=== PATIENT | female | born 1965 | race African-American/Black ===

== ENCOUNTER 2018-06-27 06:19 | Inpatient (IN) | payer MEDICAID, OTHER ==
[2018-06-27] VITALS (8 sets, daily range): BP systolic 109–142; BP diastolic 54–80
[~2018-06-27] VITALS: Ht 170.2 cm; Wt 106.6 kg
[~2018-06-27 06:19] MED LIST: AMLODIPINE BESY10 MG ORAL; ASPIR 8181 MG ORAL; CYCLOBENZAPRINE10 MG ORAL; LIPITOR80 MG ORAL; LISINOPRIL-HCT1 EACH ORAL; NAPROSYN500 M1 ORAL
[2018-06-27] MEDS ORDERED: ZOLOFT25 MG ORAL (06:28)
[2018-06-27] MEDS ORDERED: NEURONTIN300 MG ORAL (06:28)
[2018-06-27] MEDS ORDERED: TRAZODONE HCL150 MG ORAL (06:28)
[2018-06-27] MEDS ORDERED: PREDNISONE5 M4 PO (06:28)
[2018-06-27] MEDS ORDERED: IRON159 MG PO (06:28)
[2018-06-27] MEDS ORDERED: LORazepam Inj 2mg/ml 1ml IV ONE (06:30)
[2018-06-27] MEDS ORDERED: levETIRAcetam 500 MG in D5W 110 ML IV ONE (06:30)
--- NOTE | 2018-06-27 06:36 | Emergency Room Report ---
History of Present Illness General Chief Complaint: Seizure Source: Family Member, EMS Present Illness HPI Patient presents post witnessed tonic-clonic seizure by daughter. EMS was called. Patient was postictal at that time. Patient was combative and Versed was given in the field. Accu-Chek was normal in the field. The patient takes gabapentin and other medications but no other seizure medication. Allegedly, patient had been drinking alcohol in AM. No other history is available at this time. Daughter states she seizes almost daily. Sometimes there is loss of consciousness, other times "smaller ones". Allergies: Coded Allergies: No Known Allergies (Unverified , 08/17/15) Patient History Limited by: medical condition Past Medical History: see triage record Past Surgical History: other - Bilateral leg surgery for circulatory problem Social History: Reports: alcohol use, drug use - thc; Denies: smoking - former Social History Narrative lives with daughter Last Menstrual Period: UNK Now: No - unk Reviewed Nursing Documentation: PMH: Agreed; PSxH: Agreed Nursing Documentation-PMH Hx Hypertension: Yes History Of Psychiatric Problem: Yes - depression Hx Seizures: Yes Review of Systems All Other Systems: limited Physical Exam Vital Signs Date Time Temp Pulse Resp B/P (MAP) Pulse Ox O2 Delivery O2 Flow Rate FiO2 06/27/18 06:22 97.7 105 14 139/54 99 Room Air Sp02 EP Interpretation: reviewed, normal General Appearance: well appearing, no apparent distress, Postictal Head: normocephalic, atraumatic Eyes: bilateral eye normal inspection, bilateral eye PERRL ENT: moist mucus membranes - No lingual trauma Neck: supple Respiratory: lungs clear, normal breath sounds Cardiovascular #1: regular rate, rhythm Cardiovascular #2: 2+ radial (R) Gastrointestinal: normal inspection, normal bowel sounds, non tender, no mass, non-distended Musculoskeletal: back normal Neurologic: motor strength/tone normal, DTRs symmetric, sensory intact, other - Postictal Psychiatric: other - Postictal Skin: normal inspection, warm/dry Medical Decision Making Diagnostic Impression: Primary Impression: Uncontrolled seizures Qualified Codes: R56.9 - Unspecified convulsions Additional Impressions: Hypokalemia Left lower lobe pulmonary infiltrate ER Course Patient presents post witnessed tonic clonic seizure. Differential includes subtherapeutic antiseizure medication, electrolyte abnormality, acute seizure, aspiration amongst others. Patient will be evaluated with EKG, chest x-ray and labs. The patient will be given Ativan and also 500 mg of Keppra IV. Post ictal, but non-focal neurologic exam. CT not indicated at this time. EKG with sinus tachycardia rate [address]-T wave changes. Potassium is low. Bicarb low. CK slightly elevated. CXR with LLL infiltrate. K ordered. Patient waking up but still confused 7:20. BC and antibiotics ordered. No more seizure activity. Still depressed affect. Non-focal neurologic exam. Patient admitted telemetry Dr. Gonzalez. Laboratory Tests Test 06/27/18 06:35 White Blood Count 5.7 K/UL (4.8-10.8) Red Blood Count 4.21 M/UL (4.20-5.40) Hemoglobin 12.3 G/DL (12.0-16.0) Hematocrit 38.5 % (37.0-47.0) Mean Corpuscular Volume 92 FL (80-99) Mean Corpuscular Hemoglobin 29.2 PG (27.0-31.0) Mean Corpuscular Hemoglobin Concent 31.8 G/DL (32.0-36.0) L Red Cell Distribution Width 15.1 % (11.6-14.8) H Platelet Count 302 K/UL (150-450) Mean Platelet Volume 6.1 FL (6.5-10.1) L Neutrophils (%) (Auto) % (45.0-75.0) Lymphocytes (%) (Auto) % (20.0-45.0) Monocytes (%) (Auto) % (1.0-10.0) Eosinophils (%) (Auto) % (0.0-3.0) Basophils (%) (Auto) % (0.0-2.0) Differential Total Cells Counted 100 Neutrophils % (Manual) 21 % (45-75) L Lymphocytes % (Manual) 63 % (20-45) H Monocytes % (Manual) 11 % (1-10) H Eosinophils % (Manual) 5 % (0-3) H Basophils % (Manual) 0 % (0-2) Band Neutrophils 0 % (0-8) Platelet Estimate Adequate Platelet Morphology Normal Anisocytosis 1+ Urine Color Pale yellow Urine Appearance Clear Urine pH 5 (4.5-8.0) Urine Specific [place] 1.020 (1.005-1.035) Urine Protein 3+ (NEGATIVE) H Urine Glucose (UA) Negative (NEGATIVE) Urine Ketones 1+ (NEGATIVE) H Urine Blood 4+ (NEGATIVE) H Urine Nitrite Negative (NEGATIVE) Urine Bilirubin Negative (NEGATIVE) Urine Urobilinogen Normal MG/DL (0.0-1.0) Urine Leukocyte Esterase Negative (NEGATIVE) Urine RBC 5-10 /HPF (0 - 2) H Urine WBC 0 /HPF (0 - 2) Urine Squamous Epithelial Cells Few /LPF (NONE/OCC) Urine Bacteria Occasional /HPF (NONE) Sodium Level 140 MMOL/L (136-145) Potassium Level 3.0 MMOL/L (3.5-5.1) L Chloride Level 101 MMOL/L (98-107) Carbon Dioxide Level 20 MMOL/L (21-32) L Anion Gap 19 mmol/L (5-15) H Blood Urea Nitrogen 17 mg/dL (7-18) Creatinine 1.2 MG/DL (0.55-1.30) Estimate Glomerular Filtration Rate 57.2 mL/min (>60) Glucose Level 162 MG/DL (74-106) H Calcium Level 9.6 MG/DL (8.5-10.1) Total Bilirubin 0.3 MG/DL (0.2-1.0) Aspartate Amino Transferase (AST) 25 U/L (15-37) Alanine Aminotransferase (ALT) 42 U/L (12-78) Alkaline Phosphatase 121 U/L (46-116) H Total Creatine Kinase 592 U/L (26-308) H Troponin I 0.000 ng/mL (0.000-0.056) Total Protein 8.5 G/DL (6.4-8.2) H Albumin 4.2 G/DL (3.4-5.0) Globulin 4.3 g/dL Albumin/Globulin Ratio 1.0 (1.0-2.7) Urine Opiates Screen Negative (NEGATIVE) Urine Barbiturates Screen Negative (NEGATIVE) Phencyclidine (PCP) Screen Negative (NEGATIVE) Urine Amphetamines Screen Negative (NEGATIVE) Urine Benzodiazepines Screen Positive (NEGATIVE) H Urine Cocaine Screen Negative (NEGATIVE) Urine Marijuana (THC) Screen Positive (NEGATIVE) H EKG Diagnostic Results Rate: tachycardiac Rhythm: NSR ST Segments: no acute changes Rhythm Strip Diag. Results EP Interpretation: yes Rhythm: no PVC's, no ectopy, other - ST Chest X-Ray Diagnostic Results Chest X-Ray Diagnostic Results : Chest X-Ray Ordered: Yes # of Views/Limited/Complete: 1 View Indication: Other EP Interpretation: Yes Interpretation: no effusion, no pneumothorax, other - L infiltrate Impression: Other Electronically Signed by: Electronically signed by Jeb Zarco MD Last Vital Signs Date Time Temp Pulse Resp B/P (MAP) Pulse Ox O2 Delivery O2 Flow Rate FiO2 06/28/18 00:00 97.7 65 18 115/54 (74) 98 06/27/18 21:03 Room Air 21 Status: improved Disposition: ADMITTED INPATIENT Condition: Serious Jeb Zarco MD Jun 27, 2018 06:36
[2018-06-27 06:51] LABS: ANION GAP 19 mmol/L (5-15); BLOOD UREA NITROGEN 17 mg/dL (7-18); CALCIUM 9.6 MG/DL (8.5-10.1); CARBON DIOXIDE 20 MMOL/L (21-32); CHLORIDE 101 MMOL/L (98-107); CREATININE 1.2 MG/DL (0.55-1.30); SODIUM 140 MMOL/L (136-145)
[2018-06-27 06:56] LABS: ALANINE AMINOTRANSFERASE 42 U/L (12-78); ALBUMIN 4.2 G/DL (3.4-5.0); ALKALINE PHOSPHATASE 121 U/L (46-116); ASPARTATE AMINO TRANSFERASE 25 U/L (15-37); BILIRUBIN,TOTAL 0.3 MG/DL (0.2-1.0); CREATINE KINASE 592 U/L (26-308)
[2018-06-27 07:02] LABS: HEMATOCRIT 38.5 % (37.0-47.0); HEMOGLOBIN 12.3 G/DL (12.0-16.0); MEAN CORPUSCULAR VOLUME 92 FL (80-99); PLATELET COUNT 302 K/UL (150-450); RED BLOOD COUNT 4.21 M/UL (4.20-5.40); RED CELL DISTRIBUTION WIDTH 15.1 % (11.6-14.8); WHITE BLOOD COUNT 5.7 K/UL (4.8-10.8)
[2018-06-27 07:33] LABS: APPEARANCE,URINE CLEAR; BILIRUBIN, URINE NEGATIVE (NEGATIVE); COLOR,URINE PALE YELLOW; GLUCOSE, URINE (UA) NEGATIVE (NEGATIVE); KETONES,URINE 1+ (NEGATIVE); LEUKOCYTE ESTERASE ,URINE NEGATIVE (NEGATIVE); NITRITE,URINE NEGATIVE (NEGATIVE); PH,URINE 5 (4.5-8.0); PROTEIN,URINE 3+ (NEGATIVE); UROBILINOGEN,URINE NORMAL MG/DL (0.0-1.0)
--- NOTE | 2018-06-27 08:18 | Diagnostic Imaging Report ---
PORTABLE AP UPRIGHT CXR: HISTORY: 53-year-old female with pain. COMPARISON: None. FINDINGS: Image is mildly limited by motion and external artifacts, as well as patient rotation. Allowing for this, there is asymmetric minimal groundglass and reticular opacity in the left lung base, without obscuration of the left heart border or hemidiaphragm. Lung volumes are mildly low. Heart size is grossly normal. No abnormal mediastinal widening. No obvious pneumothorax or effusion. IMPRESSION: 1. Limited image, as described above. 2. Minimal asymmetric groundglass and reticular opacity in the left lung base, possibly secondary to subsegmental atelectasis, asymmetric chest wall soft tissues, and/or early pneumonia.
[2018-06-27] MEDS ORDERED: Piperacillin/Tazobactam 3.375 GM in NS 110 ML IVPB ONE (08:45)
--- NOTE | 2018-06-27 10:54 | Neurology Progress Note ---
Interim History Interim History ROS Limited/Unobtainable: No Interim History Presents after witnesses "spell" with clonic movements. Pt has history of non epileptic spells. Has been started on zoloft but not seeing a psychologist. Has had multiple EEGs and MRI all normal Was taken off all seizure meds Allergies: Coded Allergies: No Known Allergies (Unverified , 08/17/15) Patient History Limited by: medical condition Past Medical History: see triage record Past Surgical History: other - Bilateral leg surgery for circulatory problem Social History Narrative lives with daughter Last Menstrual Period: UNK Now: No - unk Reviewed Nursing Documentation: PMH: Agreed; PSxH: Agreed Objective Physical Exam Last Vital Signs Date Time Temp Pulse Resp B/P (MAP) Pulse Ox O2 Delivery O2 Flow Rate FiO2 06/27/18 10:30 98.0 82 14 135/77 95 Room Air Laboratory Tests Test 06/27/18 06:35 White Blood Count 5.7 K/UL (4.8-10.8) Red Blood Count 4.21 M/UL (4.20-5.40) Hemoglobin 12.3 G/DL (12.0-16.0) Hematocrit 38.5 % (37.0-47.0) Mean Corpuscular Volume 92 FL (80-99) Mean Corpuscular Hemoglobin 29.2 PG (27.0-31.0) Mean Corpuscular Hemoglobin Concent 31.8 G/DL (32.0-36.0) L Red Cell Distribution Width 15.1 % (11.6-14.8) H Platelet Count 302 K/UL (150-450) Mean Platelet Volume 6.1 FL (6.5-10.1) L Neutrophils (%) (Auto) % (45.0-75.0) Lymphocytes (%) (Auto) % (20.0-45.0) Monocytes (%) (Auto) % (1.0-10.0) Eosinophils (%) (Auto) % (0.0-3.0) Basophils (%) (Auto) % (0.0-2.0) Differential Total Cells Counted 100 Neutrophils % (Manual) 21 % (45-75) L Lymphocytes % (Manual) 63 % (20-45) H Monocytes % (Manual) 11 % (1-10) H Eosinophils % (Manual) 5 % (0-3) H Basophils % (Manual) 0 % (0-2) Band Neutrophils 0 % (0-8) Platelet Estimate Adequate Platelet Morphology Normal Anisocytosis 1+ Urine Color Pale yellow Urine Appearance Clear Urine pH 5 (4.5-8.0) Urine Specific [place] 1.020 (1.005-1.035) Urine Protein 3+ (NEGATIVE) H Urine Glucose (UA) Negative (NEGATIVE) Urine Ketones 1+ (NEGATIVE) H Urine Blood 4+ (NEGATIVE) H Urine Nitrite Negative (NEGATIVE) Urine Bilirubin Negative (NEGATIVE) Urine Urobilinogen Normal MG/DL (0.0-1.0) Urine Leukocyte Esterase Negative (NEGATIVE) Urine RBC 5-10 /HPF (0 - 2) H Urine WBC 0 /HPF (0 - 2) Urine Squamous Epithelial Cells Few /LPF (NONE/OCC) Urine Bacteria Occasional /HPF (NONE) Sodium Level 140 MMOL/L (136-145) Potassium Level 3.0 MMOL/L (3.5-5.1) L Chloride Level 101 MMOL/L (98-107) Carbon Dioxide Level 20 MMOL/L (21-32) L Anion Gap 19 mmol/L (5-15) H Blood Urea Nitrogen 17 mg/dL (7-18) Creatinine 1.2 MG/DL (0.55-1.30) Estimat Glomerular Filtration Rate 57.2 mL/min (>60) Glucose Level 162 MG/DL (74-106) H Calcium Level 9.6 MG/DL (8.5-10.1) Total Bilirubin 0.3 MG/DL (0.2-1.0) Aspartate Amino Transf (AST/SGOT) 25 U/L (15-37) Alanine Aminotransferase (ALT/SGPT) 42 U/L (12-78) Alkaline Phosphatase 121 U/L (46-116) H Total Creatine Kinase 592 U/L (26-308) H Troponin I 0.000 ng/mL (0.000-0.056) Total Protein 8.5 G/DL (6.4-8.2) H Albumin 4.2 G/DL (3.4-5.0) Globulin 4.3 g/dL Albumin/Globulin Ratio 1.0 (1.0-2.7) Urine Opiates Screen Negative (NEGATIVE) Urine Barbiturates Screen Negative (NEGATIVE) Phencyclidine (PCP) Screen Negative (NEGATIVE) Urine Amphetamines Screen Negative (NEGATIVE) Urine Benzodiazepines Screen Positive (NEGATIVE) H Urine Cocaine Screen Negative (NEGATIVE) Urine Marijuana (THC) Screen Positive (NEGATIVE) H Neck: no rigidity EENT: benign Neurologic Exam Mental Status: awake, oriented x4 Speech: normal speech Language: normal language Cranial Nerve II: fundus normal, visual clemens, no papilledema Cranial Nerve VIII: normal hearing Cranial Nerve X: no voice hoarseness Cranial Nerve XI: SCM symmetric, trapezii function normal Cranial Nerve XII: tongue midline, no tongue atrophy/fasciculations Motor System: normal muscle tone Sensory: normal pinprick Coordination: normal finger to nose bilaterally, normal heel to euceda bilaterally, negative Romberg test Deep Tendon Reflexes: 2+ bicep (L), 2+ bicep (R), 2+ tricep (L), 2+ tricep (R) , 2+ brachioradialis (L), 2+ brachioradialis (R), 2+ knee (L), 2+ knee (R), 2+ ankle (L), 2+ ankle (R) Stance: normal Gait: normal regular, heel + toe gait Impression/Recommendations Status: doing well Diagnostic Impression PNES psychogenic non epileptic seizures. Would not re start anti seizure meds now Needs psychotherapy Recommendations Needs outpatient follow up with psychotherapy Social work consult Tamir Laguerre M.D. Jun 27, 2018 10:54
[2018-06-27] MEDS ORDERED: Vancomycin 1.5gm Premix IVPB ONE (11:00)
[2018-06-27] MEDS ORDERED: Albuterol/Ipratropium 3ml neb HHN PRN (12:30)
[2018-06-27] MEDS ORDERED: LORazepam Inj 2mg/ml 1ml IV PRN (12:30)
[2018-06-27] MEDS ORDERED: D5NS 1,000 ML IV SCH (12:41)
--- NOTE | 2018-06-27 13:48 | Pulmonology Progress Note ---
Assessment/Plan Assessment/Plan Pulmonary Consultation Note HPI Patient is a 53 year old woman who presented status post witnessed clonic apparent seizures. Accu-Chek was normal in the field. The patient takes gabapentin and other medications but no seizure medications. Denies cough, chest pain, no hemoptysis, no shortness of breath. Noted to have left lower zone reticular/GG changes, raising possibility of Pneumonia. Currently on broad spectrum antibiotics No other history is available at this time. Allergies: No Known Allergies Past Medical History: Seizures, Depression Past Surgical History: other - Bilateral leg surgery for circulatory problem All Other Systems: limited Physical Exam Vital Signs Noted Date Time Temp Pulse Resp B/P (MAP) Pulse Ox O2 Delivery O2 Flow Rate FiO2 06/27/18 06:22 97.7 105 14 139/54 99 Room Air General Appearance: well appearing, no apparent distress, mildly sedated Head: normocephalic, atraumatic Eyes: bilateral eye normal inspection, bilateral eye PERRL ENT: moist mucus membranes - No lingual trauma Neck: supple Respiratory: lungs clear, normal breath sounds Cardiovascular: HS1, HS2 normal, regular rate, rhythm Gastrointestinal: normal inspection, normal bowel sounds, non tender, no mass, non-distended Musculoskeletal: back normal Neurologic: motor strength/tone normal, DTRs symmetric, sensory intact, no focal signs, no seizures Psychiatric: other - Postictal Skin: normal inspection, warm/dry Impression: Possible Clonic seizures, Neurology following Hypokalemia Left lower lobe pulmonary infiltrate Depression history Plan Continue broad spectrum antibiotics O2 PRN Monitor labs PPX EKG: Rate: tachycardiac Rhythm: NSR ST Segments: no acute changes Chest X-Ray: no effusion, no pneumothorax, other - L infiltrate Subjective ROS Limited/Unobtainable: No Allergies: Coded Allergies: No Known Allergies (Unverified , 08/17/15) Objective Last 24 Hour Vital Signs Date Time Temp Pulse Resp B/P (MAP) Pulse Ox O2 Delivery O2 Flow Rate FiO2 06/27/18 11:13 Room Air 06/27/18 10:30 98.0 82 14 135/77 95 Room Air 06/27/18 10:30 98.0 82 14 135/77 94 Room Air 06/27/18 09:50 97.7 84 15 124/72 95 Room Air 06/27/18 08:50 97.7 84 18 127/65 94 Room Air 06/27/18 07:43 98.1 89 21 142/80 93 Room Air 06/27/18 07:41 83 18 Room Air 06/27/18 06:40 97.7 14 139/54 99 Room Air 06/27/18 06:40 105 14 Room Air 06/27/18 06:22 97.7 105 14 139/54 99 Room Air Intake and Output 06/26/18 06/27/18 18:59 06:59 Intake Total 2000 ml Balance 2000 ml Intake IV Total 2000 ml # Voids 1 Laboratory Tests 06/27/18 06:35: White Blood Count 5.7, Red Blood Count 4.21, Hemoglobin 12.3, Hematocrit 38.5, Mean Corpuscular Volume 92, Mean Corpuscular Hemoglobin 29.2, Mean Corpuscular Hemoglobin Concent 31.8L, Red Cell Distribution Width 15.1H, Platelet Count 302 , Mean Platelet Volume 6.1L, Neutrophils (%) (Auto) , Lymphocytes (%) (Auto) , Monocytes (%) (Auto) , Eosinophils (%) (Auto) , Basophils (%) (Auto) , Differential Total Cells Counted 100, Neutrophils % (Manual) 21L, Lymphocytes % (Manual) 63H, Monocytes % (Manual) 11H, Eosinophils % (Manual) 5H, Basophils % ( Manual) 0, Band Neutrophils 0, Platelet Estimate Adequate, Platelet Morphology Normal, Anisocytosis 1+, Urine Color Pale yellow, Urine Appearance Clear, Urine pH 5, Urine Specific [place] 1.020, Urine Protein 3+H, Urine Glucose (UA) Negative, Urine Ketones 1+H, Urine Blood 4+H, Urine Nitrite Negative, Urine Bilirubin Negative, Urine Urobilinogen Normal, Urine Leukocyte Esterase Negative , Urine RBC 5-10H, Urine WBC 0, Urine Squamous Epithelial Cells Few, Urine Bacteria Occasional, Sodium Level 140, Potassium Level 3.0L, Chloride Level 101 , Carbon Dioxide Level 20L, Anion Gap 19H, Blood Urea Nitrogen 17, Creatinine 1.2, Estimat Glomerular Filtration Rate 57.2, Glucose Level 162H, Calcium Level 9.6, Total Bilirubin 0.3, Aspartate Amino Transf (AST/SGOT) 25, Alanine Aminotransferase (ALT/SGPT) 42, Alkaline Phosphatase 121H, Total Creatine Kinase 592H, Troponin I 0.000, Total Protein 8.5H, Albumin 4.2, Globulin 4.3, Albumin/Globulin Ratio 1.0, Urine Opiates Screen Negative, Urine Barbiturates Screen Negative, Phencyclidine (PCP) Screen Negative, Urine Amphetamines Screen Negative, Urine Benzodiazepines Screen PositiveH, Urine Cocaine Screen Negative , Urine Marijuana (THC) Screen PositiveH Current Medications Medications (Trade) Dose Ordered Sig/Raymond Route PRN Reason Start Time Stop Time Status Last Admin Dose Admin Albuterol/ Ipratropium (Albuterol/ Ipratropium) 3 ml Q4H PRN HHN Shortness of Breath 06/27/18 12:30 07/02/18 12:29 Aztreonam 1 gm/ Sodium Chloride 55 ml @ 110 mls/hr Q8HR IVPB 06/27/18 14:00 07/04/18 13:59 Dextrose/Sodium Chloride 1,000 ml @ 100 mls/hr Q10H IV 06/27/18 12:41 07/27/18 12:40 06/27/18 13:08 Heparin Sodium (Porcine) (Heparin 5000 units/ml) 5,000 units EVERY 12 HOURS SUBQ 06/27/18 21:00 07/27/18 20:59 Levetiracetam 100 ml @ 400 mls/hr Q12HR IVPB 06/27/18 21:00 07/27/18 20:59 Lorazepam (Ativan 2mg/ml 1ml) 2 mg Q5M PRN IV For Seizures 06/27/18 12:30 07/02/18 12:29 Pantoprazole (Protonix) 40 mg DAILY IVP 06/28/18 09:00 07/28/18 08:59 Vancomycin HCl (Vanco rx to dose) 1 ea DAILY PRN MISC Per rx protocol 06/27/18 09:15 07/27/18 09:14 Vancomycin HCl 1 gm/Dextrose 275 ml @ 183.708 mls/hr Q12HR@1100,2300 IVPB 06/27/18 23:00 07/02/18 22:59 Jeb Tate MD Jun 27, 2018 13:48
[2018-06-27] MEDS ORDERED: Piperacillin/Tazobactam 3.375 GM in NS 110 ML IVPB SCH (14:00)
[2018-06-27] MEDS ORDERED: Aztreonam Inj 1 GM in NS 55 ML IVPB SCH (14:00)
[2018-06-27] MEDS: Aztreonam Inj 1 GM in NS 55 ML IVPB SCH ×2 (16:15→21:03)
--- NOTE | 2018-06-27 19:15 | History and Physical Report ---
DATE OF ADMISSION: 06/27/[address] Gonzalez. CHIEF COMPLAINT: The patient is a 53-year-old female, who presents with chief complaint of seizure. HISTORY OF PRESENT ILLNESS: The patient has a history of seizure disorder. The patient apparently had a tonic-clonic seizure today which was observed by the patient's daughter. The patient has been on gabapentin, however, continues to have seizures. EMS was called. The patient was transported to [facility]. The patient was admitted for breakthrough seizures. REVIEW OF SYSTEMS: Unable to assess, as the patient is postictal. PAST MEDICAL HISTORY: Significant for: 1. Seizure disorder. 2. Hypertension. 3. Hypercholesterolemia. PAST SURGICAL HISTORY: significant for bilateral stent placement in the femoral artery. CURRENT MEDICATIONS: 1. Amlodipine 10 mg p.o. daily. 2. Aspirin 81 mg p.o. daily. 3. Atorvastatin 80 mg p.o. daily. 4. Flexeril 10 mg p.o. three times daily. 5. Iron sulfate mg p.o. daily. 6. Gabapentin 300 mg p.o. at bedtime. 7. Lisinopril/hydrochlorothiazide 10/12.5 one tablet p.o. daily. 8. Naprosyn 500 mg p.o. twice daily. 9. Zoloft 25 mg p.o. daily. 10. Trazodone 150 mg p.o. at bedtime. ALLERGIES: No known drug allergies. SOCIAL HISTORY: The patient is . The patient denies tobacco or alcohol use. PHYSICAL EXAMINATION: VITAL SIGNS: Temperature 98.1, respirations , pulse 89, blood pressure 142/80. GENERAL: The patient is well-developed and well-nourished female, who is somnolent, however arousable. HEENT: Eyes, pupils are equal and responsive to light and accommodation. Extraocular movements are intact. NECK: Supple without lymphadenopathy. CHEST: Lungs are clear to auscultation bilaterally without wheezes or rales. CARDIOVASCULAR: Regular rhythm and rate. S1 and S2 are normal without murmurs, rubs, or gallops. ABDOMEN: Soft, nontender, and nondistended. Positive bowel sounds. No evidence of hepatosplenomegaly. Currently, no rebound or guarding noted. EXTREMITIES: Negative for clubbing, cyanosis, or edema. RECTAL/GENITAL: Not performed. NEUROLOGICAL: Cranial nerves II through XII are grossly intact without focal deficits. Motor strength is 5/5 bilaterally. Deep tendon reflexes are 2+ plantar. LABORATORY STUDIES: WBC 5.7, hemoglobin 12.2, hematocrit 38.5 platelets, and 302,000. Sodium 140, potassium 3.0, chloride 101, CO2 20, BUN 19, creatinine 1.2, and glucose 162. Total creatine kinase elevated at 592. Urine toxicology was reported as positive for benzodiazepines and marijuana. ASSESSMENT: This is a 53-year-old : 1. Seizure. 2. History of seizure disorder. 3. Hypertension. 4. Hypercholesterolemia. TREATMENT: 1. Breakthrough seizure/history of seizure disorder. A Neurology consultation is pending with Dr. Laguerre. We will follow recommendations of Neurology. Keppra has been ordered. 2. Hypertension. Continue amlodipine and lisinopril/hydrochlorothiazide. 3. Hypercholesterolemia. Continue atorvastatin as above. David Olmedo M.D. DR: RIN JOB#: [id number] CC:
[2018-06-27] MEDS ORDERED: D5NS 1000ml IV ONE (20:36)
[2018-06-27] MEDS ORDERED: Tubing IV Secondary IV ONE (20:36)
--- NOTE | 2018-06-27 20:54 | Infectious Diseases Prog Note ---
Assessment/Plan Problems: (1) Left lower lobe pulmonary infiltrate Assessment & Plan: suspect aspiration pneumonia , will start vancomycin and aztreonam empirically pending culture, aspiration precaution (2) Uncontrolled seizures Assessment & Plan: continue seizure meds with neurology eval, monitor in tele Subjective Allergies: Coded Allergies: No Known Allergies (Unverified , 08/17/15) Objective Vital Signs Last 24 Hour Vital Signs Date Time Temp Pulse Resp B/P (MAP) Pulse Ox O2 Delivery O2 Flow Rate FiO2 06/27/18 15:38 98.2 79 20 109/69 (82) 98 06/27/18 15:38 79 06/27/18 12:00 97.5 66 21 130/60 (83) 98 06/27/18 11:40 86 06/27/18 11:13 Room Air 06/27/18 10:30 98.0 82 14 135/77 95 Room Air 06/27/18 10:30 98.0 82 14 135/77 94 Room Air 06/27/18 09:50 97.7 84 15 124/72 95 Room Air 06/27/18 08:50 97.7 84 18 127/65 94 Room Air 06/27/18 07:43 98.1 89 21 142/80 93 Room Air 06/27/18 07:41 83 18 Room Air 06/27/18 06:40 97.7 14 139/54 99 Room Air 06/27/18 06:40 105 14 Room Air 06/27/18 06:22 97.7 105 14 139/54 99 Room Air Height (Feet): 5 Height (Inches): 7.00 Weight (Pounds): 235 Laboratory Tests Test 06/27/18 06:35 White Blood Count 5.7 K/UL (4.8-10.8) Red Blood Count 4.21 M/UL (4.20-5.40) Hemoglobin 12.3 G/DL (12.0-16.0) Hematocrit 38.5 % (37.0-47.0) Mean Corpuscular Volume 92 FL (80-99) Mean Corpuscular Hemoglobin 29.2 PG (27.0-31.0) Mean Corpuscular Hemoglobin Concent 31.8 G/DL (32.0-36.0) L Red Cell Distribution Width 15.1 % (11.6-14.8) H Platelet Count 302 K/UL (150-450) Mean Platelet Volume 6.1 FL (6.5-10.1) L Neutrophils (%) (Auto) % (45.0-75.0) Lymphocytes (%) (Auto) % (20.0-45.0) Monocytes (%) (Auto) % (1.0-10.0) Eosinophils (%) (Auto) % (0.0-3.0) Basophils (%) (Auto) % (0.0-2.0) Differential Total Cells Counted 100 Neutrophils % (Manual) 21 % (45-75) L Lymphocytes % (Manual) 63 % (20-45) H Monocytes % (Manual) 11 % (1-10) H Eosinophils % (Manual) 5 % (0-3) H Basophils % (Manual) 0 % (0-2) Band Neutrophils 0 % (0-8) Platelet Estimate Adequate Platelet Morphology Normal Anisocytosis 1+ Urine Color Pale yellow Urine Appearance Clear Urine pH 5 (4.5-8.0) Urine Specific [place] 1.020 (1.005-1.035) Urine Protein 3+ (NEGATIVE) H Urine Glucose (UA) Negative (NEGATIVE) Urine Ketones 1+ (NEGATIVE) H Urine Blood 4+ (NEGATIVE) H Urine Nitrite Negative (NEGATIVE) Urine Bilirubin Negative (NEGATIVE) Urine Urobilinogen Normal MG/DL (0.0-1.0) Urine Leukocyte Esterase Negative (NEGATIVE) Urine RBC 5-10 /HPF (0 - 2) H Urine WBC 0 /HPF (0 - 2) Urine Squamous Epithelial Cells Few /LPF (NONE/OCC) Urine Bacteria Occasional /HPF (NONE) Sodium Level 140 MMOL/L (136-145) Potassium Level 3.0 MMOL/L (3.5-5.1) L Chloride Level 101 MMOL/L (98-107) Carbon Dioxide Level 20 MMOL/L (21-32) L Anion Gap 19 mmol/L (5-15) H Blood Urea Nitrogen 17 mg/dL (7-18) Creatinine 1.2 MG/DL (0.55-1.30) Estimat Glomerular Filtration Rate 57.2 mL/min (>60) Glucose Level 162 MG/DL (74-106) H Calcium Level 9.6 MG/DL (8.5-10.1) Total Bilirubin 0.3 MG/DL (0.2-1.0) Aspartate Amino Transf (AST/SGOT) 25 U/L (15-37) Alanine Aminotransferase (ALT/SGPT) 42 U/L (12-78) Alkaline Phosphatase 121 U/L (46-116) H Total Creatine Kinase 592 U/L (26-308) H Troponin I 0.000 ng/mL (0.000-0.056) Total Protein 8.5 G/DL (6.4-8.2) H Albumin 4.2 G/DL (3.4-5.0) Globulin 4.3 g/dL Albumin/Globulin Ratio 1.0 (1.0-2.7) Urine Opiates Screen Negative (NEGATIVE) Urine Barbiturates Screen Negative (NEGATIVE) Phencyclidine (PCP) Screen Negative (NEGATIVE) Urine Amphetamines Screen Negative (NEGATIVE) Urine Benzodiazepines Screen Positive (NEGATIVE) H Urine Cocaine Screen Negative (NEGATIVE) Urine Marijuana (THC) Screen Positive (NEGATIVE) H Current Medications Medications (Trade) Dose Ordered Sig/Raymond Route PRN Reason Start Time Stop Time Status Last Admin Dose Admin Albuterol/ Ipratropium (Albuterol/ Ipratropium) 3 ml Q4H PRN HHN Shortness of Breath 06/27/18 12:30 07/02/18 12:29 Aztreonam 1 gm/ Sodium Chloride 55 ml @ 110 mls/hr Q8HR IVPB 06/27/18 15:00 07/04/18 14:59 06/27/18 16:15 Dextrose/Sodium Chloride 1,000 ml @ 100 mls/hr Q10H IV 06/27/18 12:41 07/27/18 12:40 06/27/18 13:08 Heparin Sodium (Porcine) (Heparin 5000 units/ml) 5,000 units EVERY 12 HOURS SUBQ 06/27/18 21:00 07/27/18 20:59 Lorazepam (Ativan 2mg/ml 1ml) 2 mg Q5M PRN IV For Seizures 06/27/18 12:30 07/02/18 12:29 Pantoprazole (Protonix) 40 mg DAILY IVP 06/28/18 09:00 07/28/18 08:59 Vancomycin HCl (Vanco rx to dose) 1 ea DAILY PRN MISC Per rx protocol 06/27/18 09:15 07/27/18 09:14 Vancomycin HCl 1 gm/Dextrose 275 ml @ 183.708 mls/hr Q12HR@0100,1300 IVPB 06/28/18 01:00 07/03/18 00:59 Leander Francisco M.D. Jun 27, 2018 20:54
[2018-06-27] MEDS ORDERED: levETIRAcetam 500mg/NS100ml 100 ML IVPB SCH (21:00)
[2018-06-27] MEDS: Heparin 5000 units/ml inj SUBQ SCH (21:05)
[2018-06-27] MEDS ORDERED: Vancomycin 1gm/D5W 275ml IVPB SCH ×2 (23:00)
[2018-06-28] VITALS: BP 115/54
[2018-06-28] MEDS: Vancomycin 1gm/D5W 275ml IVPB SCH ×4 (00:34→13:02)
[2018-06-28 04:00] VITALS: BP 135/62
[2018-06-28] MEDS: Aztreonam Inj 1 GM in NS 55 ML IVPB SCH (05:13)
--- NOTE | 2018-06-28 07:23 | General Progress Note ---
Assessment/Plan Assessment/Plan seen and examind. Dictation completed. On 721 Subjective Allergies: Coded Allergies: No Known Allergies (Unverified , 08/17/15) Objective Last 24 Hour Vital Signs Date Time Temp Pulse Resp B/P (MAP) Pulse Ox O2 Delivery O2 Flow Rate FiO2 06/28/18 04:00 97.9 61 18 135/62 (86) 98 06/28/18 03:22 65 06/28/18 00:00 97.7 65 18 115/54 (74) 98 06/27/18 23:28 80 06/27/18 21:03 79 16 Room Air 21 06/27/18 21:00 Room Air 06/27/18 20:00 98.5 67 18 109/60 (76) 96 06/27/18 19:40 75 06/27/18 15:38 98.2 79 20 109/69 (82) 98 06/27/18 15:38 79 06/27/18 12:00 97.5 66 21 130/60 (83) 98 06/27/18 11:40 86 06/27/18 11:13 Room Air 06/27/18 10:30 98.0 82 14 135/77 95 Room Air 06/27/18 10:30 98.0 82 14 135/77 94 Room Air 06/27/18 09:50 97.7 84 15 124/72 95 Room Air 06/27/18 08:50 97.7 84 18 127/65 94 Room Air 06/27/18 07:43 98.1 89 21 142/80 93 Room Air 06/27/18 07:41 83 18 Room Air Intake and Output 06/27/18 06/28/18 19:00 07:00 Intake Total 4325 ml 1065.000 ml Output Total 1450 ml Balance 4325 ml -385.000 ml Intake Oral 480 ml IV Total 4325 ml 585.000 ml Output Urine Total 1450 ml # Voids 4 Height (Feet): 5 Height (Inches): 7.00 Weight (Pounds): 235 David Gonzalez MD Jun 28, 2018 07:23
[2018-06-28 07:53] LABS: BASOPHILS % (AUTO) 2.4 % (0.0-2.0); EOSINOPHILS % (AUTO) 2.9 % (0.0-3.0); HEMOGLOBIN 11.5 G/DL (12.0-16.0); LYMPHOCYTES % (AUTO) 42.2 % (20.0-45.0); MEAN CORPUSCULAR VOLUME 91 FL (80-99); MONOCYTES % (AUTO) 8.5 % (1.0-10.0); PLATELET COUNT 288 K/UL (150-450); RED BLOOD COUNT 3.97 M/UL (4.20-5.40); RED CELL DISTRIBUTION WIDTH 15.2 % (11.6-14.8); WHITE BLOOD COUNT 4.5 K/UL (4.8-10.8)
[2018-06-28 08:00] VITALS: BP 126/78
[2018-06-28 08:35] LABS: ALANINE AMINOTRANSFERASE 40 U/L (12-78); ALKALINE PHOSPHATASE 103 U/L (46-116); ANION GAP 11 mmol/L (5-15); ASPARTATE AMINO TRANSFERASE 29 U/L (15-37); BILIRUBIN,TOTAL 0.6 MG/DL (0.2-1.0); BLOOD UREA NITROGEN 12 mg/dL (7-18); CALCIUM 9.5 MG/DL (8.5-10.1); CARBON DIOXIDE 28 MMOL/L (21-32); CHLORIDE 104 MMOL/L (98-107); POTASSIUM 3.1 MMOL/L (3.5-5.1); SODIUM 143 MMOL/L (136-145)
[2018-06-28] MEDS ORDERED: Pantoprazole Inj IVP SCH (09:00)
[2018-06-28] MEDS: Heparin 5000 units/ml inj SUBQ SCH (09:00)
[2018-06-28 12:00] VITALS: BP 137/69
--- NOTE | 2018-06-28 15:15 | Progress Note ---
DATE: 06/28/2018 SOURCE OF INFORMATION: Patient and EMR. HISTORY OF PRESENT ILLNESS: The patient is a pleasant 53-year-old female with unremarkable past medical history, who presented with the episode of the seizure, it looks like to be tonic-clonic, generalized by her description. She reported that suffered from the same episodes couple days ago and was advised to follow up as an outpatient in emergency room couple days ago. Initial evaluation in the emergency room shows vital signs stable, relative tachycardia. Initial laboratories shows low potassium and positive for the marijuana and benzos. PAST MEDICAL HISTORY: Severe peripheral arterial disease. PAST SURGICAL HISTORY: Aortoiliac grafts in both extremities. ALLERGIES: NKDA. FAMILY HISTORY: Reviewed and noncontributory. CURRENT HOSPITAL MEDICATIONS: Including aztreonam, Protonix, and vancomycin. PHYSICAL EXAMINATION: VITAL SIGNS: Blood pressure 140/80, temperature 98.2, pulse oximetry 98% on room air, and pulse rate 100. HEAD AND NECK: Atraumatic and normocephalic. CHEST: Clear to auscultation. HEART: S1, S2. Regular rate and rhythm. ABDOMEN: Soft. No organomegaly. MUSCULOSKELETAL: Well-healed scars of prior surgeries in both legs. NEUROLOGIC: The patient is awake, alert, and oriented x3. LABORATORY AND DIAGNOSTIC DATA: Chest x-ray dated June 27, 2018, shows ground-glass and reticular opacities in the left lung. Labs dated June 24, 2018, shows WBC 5.7, hemoglobin 12.3, platelet count of 300. Sodium 140, potassium 3, BUN 17, and creatinine 1.2. Creatine kinase of 592. Toxicology shows positive for the marijuana. ASSESSMENT AND PLAN: 1. Seizure disorder, tonic-clonic. 2. Substance abuse. 3. Rhabdomyolysis secondary to seizure disorder, tonic-clonic. 4. GI and DVT prophylaxis. 5. Abnormal finding of the pulmonary infiltration. PLAN OF CARE: The patient will continue with the current prophylactic antibiotic treatment. David Gonzalez M.D. DR: NATASHA JOB#: [id number] CC:
--- NOTE | 2018-06-28 17:11 | Pulmonology Progress Note ---
Assessment/Plan Assessment/Plan Lung infiltrates Possible aspiraiton vs atx Possible Sz Rhabdo Anemia Discussion Infiltrates @ L base likely atx vs infiltrate, no WCt, no fevers, no cough/SOB D/W ID and plan was to get a CT to confirm but patient has left AMA Subjective Allergies: Coded Allergies: No Known Allergies (Unverified , 08/17/15) Subjective Patient seen earlier, has since left AMA Denied cough, SOB, CP, FC No Sz's Objective Last 24 Hour Vital Signs Date Time Temp Pulse Resp B/P (MAP) Pulse Ox O2 Delivery O2 Flow Rate FiO2 06/28/18 12:00 98.7 64 18 137/69 (91) 92 06/28/18 12:00 67 06/28/18 09:00 Room Air 06/28/18 08:00 65 06/28/18 08:00 97.2 62 18 126/78 (94) 93 06/28/18 04:00 97.9 61 18 135/62 (86) 98 06/28/18 03:22 65 06/28/18 00:00 97.7 65 18 115/54 (74) 98 06/27/18 23:28 80 06/27/18 21:03 79 16 Room Air 21 06/27/18 21:00 Room Air 06/27/18 20:00 98.5 67 18 109/60 (76) 96 06/27/18 19:40 75 Intake and Output 06/27/18 06/28/18 18:59 06:59 Intake Total 4225 ml 1165.000 ml Output Total 1450 ml Balance 4225 ml -285.000 ml Intake Oral 480 ml IV Total 4225 ml 685.000 ml Output Urine Total 1450 ml # Voids 4 General Appearance: WD/WN, no acute distress HEENT: normocephalic, atraumatic, anicteric, mucous membranes moist Respiratory/Chest: chest wall non-tender, lungs clear, normal breath sounds, no respiratory distress, no accessory muscle use Cardiovascular: normal peripheral pulses, normal rate, regular rhythm Abdomen: normal bowel sounds, soft, non tender, no organomegaly, non distended , no mass Extremities: no cyanosis, no clubbing, no edema Laboratory Tests 06/28/18 07:12: White Blood Count 4.5L, Red Blood Count 3.97L, Hemoglobin 11.5L, Hematocrit 36.0L, Mean Corpuscular Volume 91, Mean Corpuscular Hemoglobin 29.0, Mean Corpuscular Hemoglobin Concent 32.0, Red Cell Distribution Width 15.2H, Platelet Count 288, Mean Platelet Volume 5.9L, Neutrophils (%) (Auto) 44.0L, Lymphocytes (%) (Auto) 42.2, Monocytes (%) (Auto) 8.5, Eosinophils (%) (Auto) 2.9, Basophils (%) (Auto) 2.4H, Sodium Level 143, Potassium Level 3.1L, Chloride Level 104, Carbon Dioxide Level 28, Anion Gap 11, Blood Urea Nitrogen 12, Creatinine 1.0, Estimat Glomerular Filtration Rate > 60, Glucose Level 101, Calcium Level 9.5, Total Bilirubin 0.6, Aspartate Amino Transf (AST/SGOT) 29, Alanine Aminotransferase (ALT/SGPT) 40, Alkaline Phosphatase 103, Total Protein 8.1, Albumin 4.0, Globulin 4.1, Albumin/Globulin Ratio 1.0, Levetiracetam ( Keppra) Level [Pending] Yan Desai MD Jun 28, 2018 17:11
--- NOTE | 2018-06-28 19:41 | Cardiology Report ---
APPROVED REPORT EKG Measurement Heart [id number] Sinus tachycardia Nonspecific ST abnormality Abnormal ECG
--- NOTE | 2018-06-28 22:45 | Consultation ---
DATE OF CONSULTATION: 06/27/2018 INFECTIOUS DISEASE CONSULTATION CONSULTING PHYSICIAN: Leander Francisco M.D. REQUESTING PHYSICIAN: David Gonzalez M.D. REASON FOR CONSULTATION: Left lower lobe pulmonary infiltrate, possible pneumonia in a patient with a seizure. Recommendation for antibiotics treatment. HISTORY OF PRESENT ILLNESS: The patient is a 53-year-old female with past medical history of seizure disorder, who had a tonic-clonic seizure activity on the day of the admission was observed by her daughter. The patient has been taking gabapentin at home, but continued to seize. Paramedics were called and she was transported to [facility] emergency room and had extensive workup including chest x-ray, which showed left lower lobe pulmonary infiltration concerning for pneumonia. So, Infectious Disease consultation was requested for antibiotics treatment and further management. REVIEW OF SYSTEMS: A 14-point of system reviewed were all negative apart from the one I mentioned above in my History and Physical. PAST MEDICAL HISTORY: Significant for seizure disorder, hypertension, and hyperlipidemia. PAST SURGICAL HISTORY: She had bilateral stent placement in the femoral arteries. SOCIAL HISTORY: The patient is . Lives with daughter. Denied using any tobacco, drugs, or alcohol. MEDICATIONS: She is on amlodipine, aspirin, atorvastatin, Flexeril, iron sulfate, gabapentin, lisinopril, naproxen, Zoloft, and trazodone. LABORATORY DATA: Laboratories showed white count of 5.7, hemoglobin of 12.3, and platelet count of 302,000. BUN of 17 and creatinine of 1.2. AST of 25 and ALT of 42. Urinalysis was negative for nitrite and leukocyte esterase with normal WBC. IMAGING: Chest x-ray showed limited image, minimal asymmetric ground-glass and reticular opacity in the left lung base possibly due to subsegmental atelectases, asymmetric chest wall soft tissues, or early pneumonia. PHYSICAL EXAMINATION: VITAL SIGNS: Temperature 98.2, pulse 79, respirations 20, blood pressure 109/69, and saturation 98% on room air. GENERAL: A middle-aged female, lying in bed, awake, alert, comfortable, not in acute distress. HEENT: Normocephalic and atraumatic. Pupils are reactive to light equally. Moist oral mucosa. No exudate or thrush. NECK: Supple. No lymphadenopathy. CARDIOVASCULAR: Regular rate and rhythm. No murmur. LUNGS: She had diminished breathing sounds at the bases, left worse than right with crackles. No wheezing or rhonchi. Normal breathing effort. ABDOMEN: Soft, nontender, and nondistended. Normal bowel sounds. No hepatosplenomegaly. No ascites. EXTREMITIES: No edema or cyanosis. ASSESSMENT/RECOMMENDATIONS: 1. Left lower lobe lung infiltration, suspect aspiration pneumonia in a patient, who had seizure activities. We will start the patient on vancomycin and aztreonam, empiric coverage since she has seizure. Monitor chest x-ray with aspiration precaution. CT scan will be helpful for further evaluation if the patient agrees. 2. Uncontrolled seizure. Continue seizure medicine. Consult Neurology. Monitor in telemetry unit. Thank you for the consult. ID will continue to follow. Leander Francisco M.D. DR: LANG JOB#: [id number] CC:
--- NOTE | 2018-06-29 00:45 | Consultation ---
DATE OF CONSULTATION: 06/27/2018 INFECTIOUS DISEASE CONSULTATION CONSULTING PHYSICIAN: Leander Francisco M.D. REQUESTING PHYSICIAN: David Gonzalez M.D. REASON FOR CONSULTATION: Left lower lobe pulmonary infiltrate, possible pneumonia in a patient with a seizure. Recommendation for antibiotics treatment. HISTORY OF PRESENT ILLNESS: The patient is a 53-year-old female with past medical history of seizure disorder, who had a tonic-clonic seizure activity on the day of the admission was observed by her daughter. The patient has been taking gabapentin at home, but continued to seize. Paramedics were called and she was transported to [facility] emergency room and had extensive workup including chest x-ray, which showed left lower lobe pulmonary infiltration concerning for pneumonia. So, Infectious Disease consultation was requested for antibiotics treatment and further management. REVIEW OF SYSTEMS: A 14-point of system reviewed were all negative apart from the one I mentioned above in my History and Physical. PAST MEDICAL HISTORY: Significant for seizure disorder, hypertension, and hyperlipidemia. PAST SURGICAL HISTORY: She had bilateral stent placement in the femoral arteries. MEDICATIONS: She is on amlodipine, aspirin, atorvastatin, Flexeril, iron sulfate, gabapentin, lisinopril, Naprosyn, Zoloft, and trazodone. SOCIAL HISTORY: The patient is . Lives with daughter. Denied using any tobacco, drugs, or alcohol. PHYSICAL EXAMINATION: VITAL SIGNS: Temperature 98.2, pulse 79, respirations 20, blood pressure 109/69, and saturation 98% on room air. GENERAL: A middle-aged female, lying in bed, awake, alert, comfortable, not in acute distress. HEENT: Normocephalic and atraumatic. Pupils are reactive to light equally. Moist oral mucosa. No exudate or thrush. NECK: Supple. No lymphadenopathy. CARDIOVASCULAR: Regular rate and rhythm. No murmur. LUNGS: She had diminished breathing sounds at the bases, left worse than right with crackles. No wheezing or rhonchi. Normal breathing effort. ABDOMEN: Soft, nontender, and nondistended. Normal bowel sounds. No hepatosplenomegaly. No ascites. EXTREMITIES: No edema or cyanosis. LABORATORY DATA: Laboratories showed white count of 5.7, hemoglobin of 12.3, and platelet count of 302,000. BUN of 17 and creatinine of 1.2. AST of 25 and ALT of 42. Urinalysis was negative for nitrite and leukocyte esterase with normal WBC. IMAGING: Chest x-ray showed limited image, minimal asymmetric ground-glass and reticular opacity in the left lung base possibly due to subsegmental atelectases, asymmetric chest wall soft tissues, or early pneumonia. ASSESSMENT/RECOMMENDATIONS: 1. Left lower lobe lung infiltration, suspect aspiration pneumonia in a patient, who had seizure activities. We will start the patient on vancomycin and aztreonam, empiric coverage since she has seizure. Monitor chest x-ray with aspiration precaution. CT scan will be helpful for further evaluation if the patient agrees. 2. Uncontrolled seizure. Continue seizure medicine. Consult Neurology. Monitor in telemetry unit. Thank you for the consult. ID will continue to follow. Leander Francisco M.D. DR: LANG JOB#: [id number] CC:
--- NOTE | 2018-06-30 10:54 | Discharge Summary ---
Discharge Summary Discharge Summary _ DATE OF ADMISSION: 06/27/2018 DATE OF DISCHARGE: 06/28/2018 Patient signed AGAINST MEDICAL ADVICE REASON FOR ADMISSION: 53 years old female with past medical history of hypertension, high cholesterol , presented with witnessed by her daughter tonic-clonic seizure. Upon presentation patient was postictal . Patient was combative en route to the hospital, and Versed was provided in the field. Accu-Chek was stable. Allegedly patient was drinking alcohol in the morning. Upon evaluation vital signs revealed mild tachycardia, otherwise stable. Laboratory workup revealed no leukocytosis, stable hemoglobin and hematocrit. Urine toxicology screen was positive for benzodiazepine and marijuana. Chemistry revealed potassium 3.0. Anion gap elevated 19. Glucose 162. Troponin negative, CK 592. EKG revealed sinus tachycardia with nonspecific ST- T wave changes. Albumin 4.2. Urinalysis revealed +3 protein , +4 blood, but no evidence of urinary tract infection. Chest x-ray demonstrated minimal asymmetric ground glass reticular opacity in the left lung, possibly secondary to subsegmental atelectasis and/or early pneumonia. In emergency department potassium was replaced. Neurological examination was nonfocal. CT scan was not indicated. Patient still was confused. Patient pancultured, started on empiric antibiotics. No further seizure activity. Patient was admitted to telemetry floor for further management. CONSULTANTS: neurologist Dr. Laguerre pulmonary ID specialist [facility] COURSE: Patient admitted to telemetry floor. Neurology consult was requested. Patient apparently had a history of nonepileptic spells. According to patient, she had been started on Zoloft, but was not seen by psychiatrist. Per patient , multiply EEG and MRI were all within normal limits. Patient was taken off all antiseizure medication. According to neurologist , patient seizures were psychogenic, not epileptic. Seizure precaution maintained. Neurologist recommended due to not restart any seizure medication at this time. Patient required psychotherapy and would benefit from outpatient psychotherapy and social work consult. [employer] followed. Supplemental oxygen provided as needed to keep pulse oximetry above 92%. Pulmonary toilet provided as needed. Chest x-ray revealed infiltrates in the left base; atelectasis versus infiltrate No leukocytosis, no fever, no cough, no shortness of breath. Patient was started on empiric antibiotics as per ID recommendation. Potassium was further replaced. DVT and GI prophylaxis provided. Patient was counseled on abstinence from illicit street drugs and alcohol. Patient decided to leave AGAINST MEDICAL ADVICE. The risks and consequences of signing AGAINST MEDICAL ADVICE were discussed with patient in detail. Patient verbalized understanding, nevertheless refused to sign AMA form and left. FINAL DIAGNOSES: Psychogenic seizures Hypokalemia Lung infiltrates Possible aspiration versus atelectasis Rhabdomyolysis Anemia Substance abuse I have been assigned to dictate discharge summary for this account. I was not involved in the patient's management. Kaila Mendosa NP Jun 30, 2018 10:54
== END 2018-06-28 13:38 | disposition left against medical advice (07) | DRG 53 ==
LOC: EDBD 06:19 → EMR 06:35 → EDBEDREQ 09:59 → 2E 10:09
DX: G40.89 Other seizures (principal); M62.82 Rhabdomyolysis; E78.00 Pure hypercholesterolemia, unspecified; I10 Essential (primary) hypertension; E87.6 Hypokalemia; R91.8 Other nonspecific abnormal finding of lung field; J98.11 Atelectasis; D64.9 Anemia, unspecified; F19.10 Other psychoactive substance abuse, uncomplicated; Z79.82 Long term (current) use of aspirin
CPT/HCPCS: 36415; 71045; 80053; 80299; 80307; 81003; 82550; 84484; 85007; 85025; 87040; 93005; 94664; 96361; 96365; 96367; 96375; 99285